=== PATIENT | male | born 1950 | race Caucasian/White ===

== ENCOUNTER 2021-09-27 05:15 | Day surgery (SDC) | payer MEDICARE, OTHER ==
[2021-09-26 11:09] LABS: COVID AG,FIA SOURCE NASAL SWAB
[2021-09-26 11:12] LABS: BASOPHILS % (AUTO) 0.9 % (0.0-2.0); EOSINOPHILS % (AUTO) 1.2 % (1.0-6.0); HEMATOCRIT 43.6 % (41-53); HEMOGLOBIN 14.5 g/dL (13.5-17.5); LYMPHOCYTES # (AUTO) 2.1 K/uL (1.0-4.8); MEAN CORPUSCULAR HEMOGLOBIN 27.3 pg (26.0-34.0); MEAN CORPUSCULAR HGB CONC 33.1 G/dL (31.0-37.0); MEAN CORPUSCULAR VOLUME 82 fL (80-100); MONOCYTES # (AUTO) 0.6 K/uL (0.1-1.0); MONOCYTES % (AUTO) 8.5 % (2.0-9.0); NEUTROPHILS # (AUTO) 4.7 K/uL (1.8-7.7); NEUTROPHILS % (AUTO) 61.4 % (40.0-70.0); PLATELET COUNT (AUTO) 317 K/uL (150-450); RED CELL DISTRIBUTION WIDTH 14.6 % (11.5-14.5)
[2021-09-26 11:26] LABS: PROTHROMBIN TIME 10.2 SEC (9.4-11.6)
[2021-09-26 11:30] LABS: ANION GAP 8 mmol/L (8-16); CALCIUM, TOTAL 9.3 mg/dL (8.8-10.5); CARBON DIOXIDE 29 mmol/L (22-29); CHLORIDE 100 mmol/L (98-107); CREATININE 1.05 mg/dL (0.60-1.30); GLOMERULAR FILTR. RATE CALC > 60 mL/min (>60); GLUCOSE,RANDOM 179 mg/dL (70-110); POTASSIUM 3.6 mmol/L (3.5-5.1); SODIUM SERUM 137 mmol/L (136-145); UREA NITROGEN, BLOOD 20 mg/dL (7-18)
[~2021-09-27] VITALS: Ht 160 cm; Wt 95.5 kg
[~2021-09-27 05:15] MED LIST: ACET-66 PO; ALBU6.7H9 IH; ALBU8HFA IH; ASPI-1522 PO; DOCU100C33 PO; EMPA25TA PO; FLUT16H NASAL; FURO40TA5 PO; GABA-1181 PO; INSU100I24 SQ; METF-446 PO; METO-408 PO; OMEG10005 PO; OMEP40CA21 PO; POTA-204 PO; SEMA0.25 SQ; TRAM50TA4 PO
[2021-09-27] MEDS ORDERED: SODIUM CHLORIDE 0.9% 1,000 ML ONE (05:37)
[2021-09-27] MEDS ORDERED: SODIUM CHLORIDE 0.9% 1,000 ML IV ONE (06:00)
[2021-09-27] MEDS ORDERED: LIDOCAINE/PF 1% 30 ML VIAL ONE ×2 (06:53→08:29)
[2021-09-27] MEDS ORDERED: VANCOMYCIN HCL 1 GM/VIAL ONE (06:53)
[2021-09-27] MEDS ORDERED: HEPARIN SODIUM,PORCINE 1,000 UNITS/ML VIAL ONE (06:53)
[2021-09-27] MEDS ORDERED: SODIUM CHLORIDE 0.9% 0 ML IV ONE ×2 (06:54→06:57)
[2021-09-27] MEDS ORDERED: HEPARIN SODIUM,PORCINE 5,000 UNITS/ML VIAL ONE (06:57)
[2021-09-27 07:25] LABS: GLUCOMETER DEV NAME(LOC) SDS.; GLUCOSE,POINT OF CARE 185 MG/DL (70-110)
[2021-09-27] MEDS ORDERED: DiphenhydrAMINE HCL 50 MG CAPSULE PO STA (07:59)
[2021-09-27] MEDS ORDERED: DIAZEPAM 5 MG TABLET PO STA (07:59)
[2021-09-27] MEDS ORDERED: SODIUM CHLORIDE 0.9% 500 ML IV ONE ×2 (08:00→10:15)
[2021-09-27] MEDS ORDERED: DiphenhydrAMINE HCL 50 MG CAPSULE ONE (08:15)
[2021-09-27] MEDS ORDERED: DIAZEPAM 5 MG TABLET ONE (08:16)
[2021-09-27] MEDS ORDERED: MIDAZOLAM HCL 2 MG/2 ML VIAL ONE (08:28)
[2021-09-27] MEDS ORDERED: FentaNYL CITRATE PF 100 MCG/2 ML VIAL ONE (08:28)
[2021-09-27] MEDS ORDERED: IOHEXOL 300 MG/ML 50 ML VIAL ONE (08:29)
[2021-09-27] MEDS ORDERED: HEPARIN SODIUM 1000 UNITS/NS 1,000 ML ONE (08:29)
[2021-09-27] MEDS ORDERED: SODIUM BICARBONATE 50 MEQ/50 ML VIAL ONE (08:29)
[2021-09-27] MEDS ORDERED: IOHEXOL 300 MG/ML 100 ML VIAL ONE (08:29)
[2021-09-27] MEDS ORDERED: IOHEXOL 300 MG/ML 150 ML VIAL ONE (08:29)
[2021-09-27 08:35] VITALS: BP 142/73
[2021-09-27] MEDS ORDERED: VERAPAMIL HCL 2.5 MG/ML 2 ML VIAL ONE (08:39)
[2021-09-27] MEDS ORDERED: NITROGLYCERIN 50 MG/D5% WATER 250 ML ONE (08:39)
[2021-09-27] MEDS ORDERED: IOHEXOL 300 MG/ML 150 ML VIAL ICOR ONE (08:45)
[2021-09-27] MEDS ORDERED: HEPARIN SODIUM 1000 UNITS/NS 1,000 ML IARTER ONE (08:45)
[2021-09-27] MEDS ORDERED: LIDOCAINE 1% 30 ML/SOD BICARB 8.4% 4 ML SQ ONE (08:45)
[2021-09-27] MEDS ORDERED: MIDAZOLAM HCL 2 MG/2 ML VIAL IVP ONE ×2 (09:15→09:45)
[2021-09-27] MEDS ORDERED: FentaNYL CITRATE PF 100 MCG/2 ML VIAL IVP ONE ×2 (09:15→09:45)
[2021-09-27] MEDS ORDERED: HEPARIN SODIUM,PORCINE 5,000 UNITS/ML VIAL IVP ONE (09:30)
[2021-09-27] MEDS ORDERED: NITROGLYCERIN/D5W 50 MG/250 ML IV BOTTLE IARTER ONE ×2 (09:30→09:45)
[2021-09-27] MEDS ORDERED: VERAPAMIL HCL 2.5 MG/ML 2 ML VIAL IARTER ONE ×2 (09:30→09:45)
[2021-09-27 09:38] VITALS: BP 113/57
[2021-09-27] MEDS ORDERED: IODIXANOL 320 MG/ML 150 ML VIAL ONE (09:44)
[2021-09-27] MEDS ORDERED: IOHEXOL 300 MG/ML 100 ML VIAL IARTER ONE (09:45)
[2021-09-27] MEDS ORDERED: ACETAMINOPHEN 325 MG TABLET PO PRN (10:15)
== END 2021-09-27 13:30 | disposition home or self-care (01) ==
LOC: SDS 05:15
PROVIDERS: ATTEND Internal Medicine Cardiovascular Disease
DX: R94.39 Abnormal result of other cardiovascular function study (principal); I25.119 Atherosclerotic heart disease of native coronary artery with unspecified angina pectoris; I70.211 Atherosclerosis of native arteries of extremities with intermittent claudication, right leg; E11.9 Type 2 diabetes mellitus without complications; E78.00 Pure hypercholesterolemia, unspecified; M19.042 Primary osteoarthritis, left hand; M19.041 Primary osteoarthritis, right hand; Z79.01 Long term (current) use of anticoagulants; Z79.899 Other long term (current) drug therapy; Z98.890 Other specified postprocedural states; Z79.4 Long term (current) use of insulin
CPT/HCPCS: 36415; 75625; 75716; 80048; 82962; 85025; 85610; 85730; 87426; 93005; 93458; 99152; 99153; C9803; J1644 ×2; J2250; J3010; J3490 ×4; J7030; Q9967 ×2; 36200; 75630; J3370; J7040; J7050

== ENCOUNTER 2021-11-22 05:40 | Day surgery (SDC) | payer MEDICARE, OTHER ==
[2021-11-20 11:48] LABS: BASOPHILS % (AUTO) 0.6 % (0.0-2.0); EOSINOPHILS % (AUTO) 1.5 % (1.0-6.0); HEMATOCRIT 42.2 % (41-53); HEMOGLOBIN 13.7 g/dL (13.5-17.5); LYMPHOCYTES # (AUTO) 2.2 K/uL (1.0-4.8); LYMPHOCYTES % (AUTO) 33.8 % (22.0-44.0); MEAN CORPUSCULAR HGB CONC 32.5 G/dL (31.0-37.0); MEAN CORPUSCULAR VOLUME 86 fL (80-100); MONOCYTES # (AUTO) 0.6 K/uL (0.1-1.0); NEUTROPHILS # (AUTO) 3.6 K/uL (1.8-7.7); NEUTROPHILS % (AUTO) 55.1 % (40.0-70.0); PLATELET COUNT (AUTO) 289 K/uL (150-450); RED BLOOD CELL COUNT(AUTO) 4.91 MIL/uL (4.50-5.90); RED CELL DISTRIBUTION WIDTH 15.8 % (11.5-14.5)
[2021-11-20 11:57] LABS: PROTHROMBIN TIME 10.4 SEC (9.4-11.6)
[2021-11-20 11:59] LABS: ANION GAP 5 mmol/L (8-16); CALCIUM, TOTAL 8.5 mg/dL (8.8-10.5); CARBON DIOXIDE 31 mmol/L (22-29); CHLORIDE 105 mmol/L (98-107); CREATININE 0.99 mg/dL (0.60-1.30); GLOMERULAR FILTR. RATE CALC > 60 mL/min (>60); GLUCOSE,RANDOM 114 mg/dL (70-110); POTASSIUM 4.7 mmol/L (3.5-5.1); SODIUM SERUM 141 mmol/L (136-145); UREA NITROGEN, BLOOD 20 mg/dL (7-18)
[2021-11-20 12:04] LABS: ALANINE AMINOTRANSFERASE 31 U/L (12-78); ALBUMIN 3.6 g/dL (3.4-5.0); ALKALINE PHOSPHATASE 74 U/L (46-116); ASPARTATE AMINOTRANSFERASE 21 U/L (15-37); BILIRUBIN,TOTAL 0.5 mg/dL (0.1-1.0); TOTAL PROTEIN, SERUM 7.2 g/dL (6.4-8.2)
[2021-11-20 12:08] LABS: COVID AG,FIA SOURCE NASAL SWAB
[~2021-11-22] VITALS: Ht 165.1 cm; Wt 93.5 kg
[~2021-11-22 05:40] MED LIST changes: -ALBU8HFA IH; -EMPA25TA PO; -FLUT16H NASAL; -INSU100I24 SQ; -METF-446 PO; -OMEG10005 PO; -OMEP40CA21 PO; +SODIUM CHLORIDE 0.9% 1,000 ML IV ONE; +SODIUM CHLORIDE 0.9% 1,000 ML ONE; -TRAM50TA4 PO
[2021-11-22] MEDS ORDERED: EMPA25TA3 PO (06:24)
[2021-11-22] MEDS ORDERED: DOCU50LI25 PO (06:25)
[2021-11-22] MEDS ORDERED: CLOP75TA60 PO (06:27)
[2021-11-22 07:01] LABS: GLUCOMETER DEV NAME(LOC) SDS.; GLUCOSE,POINT OF CARE 187 MG/DL (70-110)
[2021-11-22] MEDS ORDERED: LIDOCAINE/PF 1% 30 ML VIAL ONE (08:13)
[2021-11-22] MEDS ORDERED: SODIUM BICARBONATE 50 MEQ/50 ML VIAL ONE (08:13)
[2021-11-22] MEDS ORDERED: HEPARIN SODIUM 1000 UNITS/NS 1,000 ML ONE (08:13)
[2021-11-22] MEDS ORDERED: IOHEXOL 350 MG/ML 100 ML VIAL ONE (08:13)
[2021-11-22] MEDS ORDERED: FentaNYL CITRATE PF 100 MCG/2 ML VIAL ONE (08:14)
[2021-11-22 08:15] VITALS: BP 130/59
[2021-11-22] MEDS ORDERED: MIDAZOLAM HCL 2 MG/2 ML VIAL ONE ×2 (08:15→08:58)
[2021-11-22] MEDS ORDERED: LIDOCAINE 1% 30 ML/SOD BICARB 8.4% 4 ML SQ ONE (08:45)
[2021-11-22] MEDS ORDERED: HEPARIN SODIUM 1000 UNITS/NS 1,000 ML IARTER ONE (08:45)
[2021-11-22] MEDS ORDERED: FentaNYL CITRATE PF 100 MCG/2 ML VIAL IVP ONE (08:45)
[2021-11-22] MEDS ORDERED: MIDAZOLAM HCL 2 MG/2 ML VIAL IVP ONE (08:45)
[2021-11-22] MEDS ORDERED: IOHEXOL 350 MG/ML 100 ML VIAL IARTER ONE (08:45)
[2021-11-22] MEDS ORDERED: SODIUM CHLORIDE 0.9% 1,000 ML IV ONE (09:15)
[2021-11-22 09:21] VITALS: BP 135/62
[2021-11-25 06:46] LABS: GLUCOMETER DEV NAME(LOC) SDS.; GLUCOSE,POINT OF CARE 150 MG/DL (70-110)
== END 2021-11-22 14:10 | disposition home or self-care (01) ==
LOC: CATHLAB 05:40
PROVIDERS: ATTEND Internal Medicine Cardiovascular Disease
DX: I70.211 Atherosclerosis of native arteries of extremities with intermittent claudication, right leg (principal); I25.10 Atherosclerotic heart disease of native coronary artery without angina pectoris; E11.9 Type 2 diabetes mellitus without complications; I10 Essential (primary) hypertension; E66.9 Obesity, unspecified; F32.9 Major depressive disorder, single episode, unspecified; Z79.01 Long term (current) use of anticoagulants; Z79.899 Other long term (current) drug therapy; Z98.890 Other specified postprocedural states; I65.21 Occlusion and stenosis of right carotid artery
CPT/HCPCS: 80053; 85025; 85610; 85730; 36415; 93005; 87426; 75710; 82962; 99152; 99153; 36200; C9803; J3010; J1644; J3490 ×2; J2250; Q9967; J7030; 75630; 75716